=== PATIENT | male | born 1980 | race Asian ===

== ENCOUNTER 2023-11-27 22:50 | Emergency (ER) | payer OTHER ==
[~2023-11-27] VITALS: Ht 165.1 cm; Wt 78.9 kg
[2023-11-27 23:08] VITALS: O2SAT 97
[2023-11-27 23:11] VITALS: BP 152/100; PULSE 100; RESP 16; TEMP 36.94740; O2SAT 97
== END 2023-11-28 02:12 | disposition home or self-care (01) ==
LOC: ER 22:50
DX: S06.0X0A Concussion without loss of consciousness, initial encounter (principal); S01.81XA Laceration without foreign body of other part of head, initial encounter; W18.39XA Other fall on same level, initial encounter; Y93.89 Activity, other specified; Y92.89 Other specified places as the place of occurrence of the external cause; Y99.8 Other external cause status
CPT/HCPCS: 12013; 99282